=== PATIENT | male | born 1970 | race Caucasian/White ===

== ENCOUNTER 2023-04-04 09:45 | Emergency (ER) | payer BC ==
[2023-04-04] MEDS ORDERED: fentaNYL 100 MCG/2 ML SDV IM ONE (10:50)
== END 2023-04-04 12:39 | disposition home or self-care (01) ==
LOC: JP.ED 09:45
DX: S42.251A Displaced fracture of greater tuberosity of right humerus, initial encounter for closed fracture (principal); E78.00 Pure hypercholesterolemia, unspecified; I10 Essential (primary) hypertension; J45.909 Unspecified asthma, uncomplicated; W17.89XA Other fall from one level to another, initial encounter; Y93.44 Activity, trampolining; Y92.009 Unspecified place in unspecified non-institutional (private) residence as the place of occurrence of the external cause
CPT/HCPCS: 73030; 96372; 99283; J3010